=== PATIENT | male | born 1930 | race Caucasian/White ===

== ENCOUNTER 2017-05-23 13:49 | Observation (INO) | payer MEDICARE, BC ==
[2017-05-23] MEDS ORDERED: ONDANSETRON 4 MG/2 ML VIAL IVP PRN (17:45)
[2017-05-23] MEDS ORDERED: ENALAPRILAT 1.25 MG/ML 1 ML VIAL IVP PRN (17:45)
[2017-05-23] MEDS: SODIUM CHLORIDE 0.9% 1,000 ML IV SCH (18:17)
[2017-05-23 18:54] LABS: Basophils % (A) 0 %; Eosinophils # (A) 0.1 k/uL (0-0.7); Eosinophils % (A) 1 %; HCT 40.3 % (39.0-53.0); Lymphocytes % (A) 15 %; MCH 29.9 pg (25.0-35.0); MCHC 32.3 g/dL (31.0-37.0); MCV 92.6 fL (80.0-100.0); Mean Platelet Volume 8.6; Monocytes # (A) 0.4 k/uL (0-1.0); Monocytes % (A) 7 %; Neutrophils # (A) 5.1 k/uL (1.3-7.7); Neutrophils % (A) 76 %; Platelet Count 149 k/uL (150-450); RBC 4.35 m/uL (4.30-5.90); RDW 14.7 % (11.5-15.5); WBC 6.7 k/uL (3.8-10.6)
[2017-05-23 18:55] LABS: INR 1.8 (<1.2); Prothrombin Time 16.2 sec (9.0-12.0)
[2017-05-23 19:10] LABS: Calcium 9.5 mg/dL (8.4-10.2)
[2017-05-24 08:28] LABS: INR 1.8 (<1.2); Prothrombin Time 16.1 sec (9.0-12.0)
--- NOTE | 2017-05-24 08:39 | P.CONS ---
History of Present Illness - Reason for Consult Consult date: 05/24/17 Dysphagia Requesting physician: Chantell Pal - History of Present Illness 87-year-old gentleman patient of Dr. Pal with a past history of CVA 2 with warfarin maintenance, GERD, throat carcinoma status post chemoradiation 2 years ago requiring about 40 radiation treatments and several cycles of chemotherapy. Patient was eating a pork sandwich yesterday afternoon developed acute dysphagia felt in the anterior portion of his throat with coughing and small emesis. Denies hematemesis fever or chills. No history of dysphagia no recent EGD. Denies odynophagia he is able to take small sips of water at bedside this morning without choking coughing or gagging. Admission white count 6.7. Hemoglobin 13. platelet 149. INR 1.8. Review of Systems Constitutional: Denies fever, chills, sweats, weight gain, or loss. HEENT: History of throat carcinoma radiation chemo. Negative for migraines, blurred vision or loss, earaches, drainage, tinnitus, oral mucosal lesions, dysphagia, or odynophagia. Cardiac: Negative for chest pain, arrhythmias, or palpitation. Respiratory: Negative for shortness of breath, hemoptysis, cough, or sputum production. Gastrointestinal: See HPI for pertinent findings. Genitourinary: Negative for hematuria, urgency, frequency, polyuria, dysuria, or penile discharge. Musculoskeletal: Negative for muscle aches, swelling, arthritis, and arthralgias. Neurologic: History of CVA 2.. Endocrine: Negative for thyroid problems. Skin: Negative for rash or itching. Psychiatric: Negative history for depression and anxiety Past Medical History Past Medical History: CVA/TIA, GERD/Reflux, Hypertension Additional Past Medical History / Comment(s): CVA X2, HOARSENESS, throat cancer with chemo and radiation 2014 History of Any Multi-Drug Resistant Organisms: None Reported Past Surgical History: Ear Surgery Additional Past Surgical History / Comment(s): THYROID BX, LEFT EAR STAPES BONE REPLACED WITH STEEL Past Anesthesia/Blood Transfusion Reactions: No Reported Reaction Past Psychological History: No Psychological Hx Reported Smoking Status: Former smoker Past Alcohol Use History: None Reported Past Drug Use History: None Reported Medications and Allergies Home Medications Medication Instructions Recorded Confirmed Type Warfarin Sodium [Coumadin] 7.5 mg PO DAILY 05/23/17 05/23/17 History Allergies Allergy/AdvReac Type Severity Reaction Status Date / Time amoxicillin trihydrate AdvReac Nausea & Verified 05/23/17 16:53 [From Augmentin] Vomiting & Diarrhea potassium clavulanate AdvReac Nausea & Verified 05/23/17 16:53 [From Augmentin] Vomiting & Diarrhea Physical Exam Vitals: Vital Signs Temp Pulse Resp BP BP Pulse Ox 05/24/17 06:03 97.8 F 52 L 16 133/69 98 05/24/17 00:10 152/94 05/23/17 22:45 97.3 F L 54 L 18 172/81 99 05/23/17 16:05 96.8 F L 50 L 18 157/77 99 Intake and Output 05/23/17 05/24/17 05/24/17 22:59 06:59 14:59 Intake Total 0 Balance 0 Intake: Oral 0 Other: # Voids 1 2 Weight 64 kg General appearance: The patient is alert, oriented, in no acute distress. Voice hoarseness. HET: Head is normocephalic and atraumatic. Pupils are equal and reactive. Oropharynx is clear without lesions. Neck: Supple without lymphadenopathy. Trachea midline. Heart: S1 S2. Regular rate and rhythm. Lungs: No crackles or wheezes are heard. Abdomen: Soft, nontender, nondistended with bowel sounds. No peritoneal signs. No palpable organomegaly or masses. Extremities: Normal skin color and turgor. No cyanosis, rash, ulceration, clubbing, or edema. Radial and pedal pulses are 2/4 bilaterally. Neurological: No focal deficits. Strength and sensation are grossly intact. Results CBC & Chem 7: 05/23/17 18:40 05/23/17 18:40 Labs: Abnormal Lab Results - Last 24 Hours (Table) 05/23/17 05/23/17 05/23/17 Range/Units 18:40 18:40 18:40 Plt Count 149 L (150-450) k/uL PT 16.2 H (9.0-12.0) sec INR 1.8 H (<1.2) BUN 23 H (9-20) mg/dL Assessment and Plan (1) Dysphagia Narrative/Plan: Possible foreign body possible stricture disease with history of throat carcinoma requiring chemoradiation 2 years ago. Current Visit: Yes Status: Acute Code(s): R13.10 - DYSPHAGIA, UNSPECIFIED SNOMED Code(s): 94998268 (2) Warfarin-induced coagulopathy Current Visit: Yes Status: Acute Code(s): D68.32 - HEMORRHAGIC DISORD D/T EXTRINSIC CIRCULATING ANTICOAGULANTS; T45.515A - ADVERSE EFFECT OF ANTICOAGULANTS, INITIAL ENCOUNTER SNOMED Code(s): 17444590 Plan: 1. We'll proceed with EGD evaluation this afternoon. Continue with nothing by mouth status. The pediatric np has discussed the risks, benefits and alternative therapies for the above-mentioned procedure and for both sedation/analgesia as well as necessary blood product administration, if indicated, as they pertain to this patient. The patient has indicated understanding and acceptance of the risks and procedures discussed. Thank you for this kind referral and the opportunity to participate in the care of your patient. This consultation was discussed with Dr. Schmidt. The impression and plan of care have been directed as dictated.
[2017-05-24 09:40] VITALS: BMI 24.2
--- NOTE | 2017-05-24 11:28 | P.HPIM ---
History of Present Illness H&P Date: 05/24/17 Navi Clayton is an 87-year-old male well-known to my practice who presented to the office on 05/23/2017 complaining of inability to swallow any food or liquids patient stated that this started suddenly after eating a pork sandwich, he was unable to swallow his food and was unable to swallow sips of water he was coughing up foamy material. Patient has known history of throat carcinoma diagnosed 2 years prior, and was treated with chemo and radiation therapy. He also has known history of stroke in the past with paroxysmal atrial fibrillation maintained on Coumadin, INR on presentation was 1.8. Patient was admitted directly from the office to medical floor gastroenterology consultation was requested for possible EGD, he was kept nothing by mouth and was started on normal saline at 75 mL an hour. Past Medical History Past Medical History: CVA/TIA, GERD/Reflux, Hypertension Additional Past Medical History / Comment(s): CVA X2, HOARSENESS, throat cancer with chemo and radiation 2014 History of Any Multi-Drug Resistant Organisms: None Reported Past Surgical History: Ear Surgery Additional Past Surgical History / Comment(s): THYROID BX, LEFT EAR STAPES BONE REPLACED WITH STEEL Past Anesthesia/Blood Transfusion Reactions: No Reported Reaction Past Psychological History: No Psychological Hx Reported Smoking Status: Former smoker Past Alcohol Use History: None Reported Past Drug Use History: None Reported Medications and Allergies Home Medications Medication Instructions Recorded Confirmed Type Warfarin Sodium [Coumadin] 7.5 mg PO DAILY 05/23/17 05/23/17 History Allergies Allergy/AdvReac Type Severity Reaction Status Date / Time amoxicillin trihydrate AdvReac Nausea & Verified 05/23/17 16:53 [From Augmentin] Vomiting & Diarrhea potassium clavulanate AdvReac Nausea & Verified 05/23/17 16:53 [From Augmentin] Vomiting & Diarrhea Physical Exam Vitals: Vital Signs Temp Pulse Resp BP BP Pulse Ox 05/24/17 06:03 97.8 F 52 L 16 133/69 98 05/24/17 00:10 152/94 05/23/17 22:45 97.3 F L 54 L 18 172/81 99 05/23/17 16:05 96.8 F L 50 L 18 157/77 99 Intake and Output 05/23/17 05/24/17 05/24/17 22:59 06:59 14:59 Intake Total 0 Balance 0 Intake: Oral 0 Other: # Voids 1 2 Weight 64 kg 64 kg Patient Weight 05/25/17 06:59 Weight 64 kg In general patient is alert and oriented 3 in no apparent distress HEENT head normocephalic and atraumatic Neck is supple no JVD no goiter no lymphadenopathy Chest exam reveals a few scattered crackles no wheezing Cardiac exam reveals regular heart sounds no gallops no murmurs Abdomen is soft nontender no organomegaly with normal bowel sounds Extremity exam reveals no edema no cyanosis or clubbing Results CBC & Chem 7: 05/23/17 18:40 05/23/17 18:40 Labs: Abnormal Lab Results - Last 24 Hours (Table) 05/23/17 05/23/17 05/23/17 Range/Units 18:40 18:40 18:40 Plt Count 149 L (150-450) k/uL PT 16.2 H (9.0-12.0) sec INR 1.8 H (<1.2) BUN 23 H (9-20) mg/dL 05/24/17 Range/Units 08:06 Plt Count (150-450) k/uL PT 16.1 H (9.0-12.0) sec INR 1.8 H (<1.2) BUN (9-20) mg/dL Thrombosis Risk Factor Assmnt - Choose All That Apply Other Risk Factors: No Assessment and Plan Plan: #1 sudden onset of dysphagia #2 underlying history of throat cancer diagnosed 2 years ago and treated with chemotherapy and radiation therapy #3 previous history of stroke #4 paroxysmal atrial fibrillation maintained on Coumadin INR on presentation 1.8 At this time patient is stable he is kept nothing by mouth gastroenterology consultation was requested for possible EGD Will follow during this hospitalization for medical management
[2017-05-24] MEDS ORDERED: PROPOFOL 10 MG/ML 20 ML VIAL IV ONE (13:41)
[2017-05-24] MEDS ORDERED: IV FLUID CONTINUATION 1,000 ML IV ONE (13:50)
[2017-05-24] MEDS: SODIUM CHLORIDE 0.9% 1,000 ML IV SCH (17:35)
[2017-05-24] MEDS ORDERED: WARFARIN 7.5 MG TAB PO ONE (18:00)
--- NOTE | 2017-05-24 22:59 | P.PCN ---
Date of Procedure: 05/24/17 Procedure(s) Performed: Procedure: Esophagogastroduodenoscopy and esophageal dilation using the Microvasive [id number]-qvyie balloon size 10-12 mm. Preoperative diagnosis: Obstructive dysphagia. Postoperative diagnosis: 1. Distal esophageal ulcers and stricture requiring dilation before the endoscope could be advanced into the stomach. 2. No impacted food bolus was noted and the impacted food material must have spontaneously advanced into the stomach prior to this examination. Preparation and sedation: Was provided by anesthesia. Brief clinical history: The patient is an an 87-year-old male who presented to PCP office on 05/23/2017 complaining of inability to swallow any food or liquids and he stated that this started suddenly after eating a pork sandwich. He was unable to swallow sips of water and he was coughing up foamy material. He has history of throat carcinoma diagnosed 2 years prior, and was treated with chemo and radiation therapy. He also has history of stroke in the past with paroxysmal atrial fibrillation maintained on Coumadin, INR on presentation was 1.8. Patient was admitted directly from the office to medical floor and a gastroenterology consultation was requested for possible EGD. The details are summarized in the history and physical and dictated consultation and progress notes. This evaluation is for possible foreign body removal. Procedure: With the patient on his left lateral decubitus position and after informed consent and adequate sedation, I passed the Olympus-GIF 160 video upper endoscope through the cricopharyngeus down the esophagus. There was hesitation to the advancing of the endoscope through the cricopharyngeal area but there was no stricture at that level. The esophagus showed no impacted food bolus or significant amount of secretions. The distal esophagus was strictured and would not allow the advancement of the endoscope. I could see through the stricture two ulcerations covered with exudate in the distal esophagus. At this point, I proceeded to pass the Microvasive through-the- scope balloon dilator size 10-12 mm centered it at the level of the stricture and inflated it in a stepwise fashion up to 12 mm following which I was able to pass the endoscope into the stomach. The 2 ulcers in the distal esophagus where almost circumferential but appeared benign. There was a 1-2 cm hiatal hernia then the endoscope was advanced to the stomach which was insufflated with air and inspected in detail including the retroflex view in the cardia. Finally, the endoscope was passed through the pylorus into the duodenum. There was no masses seen in the retroflex view in the cardia or any obvious abnormalities in the stomach. Pyloric channel, duodenal bulb, post bulbar area and descending duodenum appeared within normal limits. The patient tolerated the procedure well. Plan: The patient and his family were reassured. It is likely that the ulcerations in the distal esophagus and the stricture are acid reflux related. I suggested clear liquid diet today and starting intensive medical therapy for reflux. His diet can be advanced tomorrow as tolerated. Repeat upper endoscopy in 2-3 months for assessment of the healing of the esophageal ulcers and possible further dilation will be considered. I will discuss with you and follow with you with interest.
[2017-05-25 07:20] LABS: Basophils % (A) 0 %; Eosinophils # (A) 0.1 k/uL (0-0.7); Eosinophils % (A) 2 %; HCT 39.6 % (39.0-53.0); HGB 12.5 gm/dL (13.0-17.5); Lymphocytes # (A) 0.9 k/uL (1.0-4.8); Lymphocytes % (A) 15 %; MCH 29.3 pg (25.0-35.0); MCHC 31.5 g/dL (31.0-37.0); MCV 92.9 fL (80.0-100.0); Mean Platelet Volume 8.7; Monocytes # (A) 0.5 k/uL (0-1.0); Monocytes % (A) 8 %; Neutrophils # (A) 4.6 k/uL (1.3-7.7); Neutrophils % (A) 74 %; Platelet Count 150 k/uL (150-450); RBC 4.26 m/uL (4.30-5.90); RDW 14.5 % (11.5-15.5); WBC 6.2 k/uL (3.8-10.6)
[2017-05-25 07:23] LABS: Prothrombin Time 17.9 sec (9.0-12.0)
[2017-05-25 07:37] LABS: Albumin 3.4 g/dL (3.5-5.0); Calcium 9.2 mg/dL (8.4-10.2); Potassium 4.6 mmol/L (3.5-5.1); Total Protein 5.9 g/dL (6.3-8.2)
[2017-05-25 07:51] VITALS: RESP 20
[2017-05-25] MEDS ORDERED: PANTOPRAZOLE 40 MG/10 ML VIAL IVP SCH (09:00)
--- NOTE | 2017-05-25 11:10 | P.PN ---
Subjective Progress Note Date: 05/25/17 Principal diagnosis: Dysphagia Status post EGD evaluation yesterday for dysphagia with findings of distal esophageal ulcers and stricture requiring balloon dilation. Feels well this point. Tolerating liquid diet. Hemoglobin 12.5. INR 2.0. Objective - Vital Signs Vital signs: Vital Signs Temp 98.5 F 05/25/17 07:00 Pulse 63 05/25/17 07:00 Resp 20 05/25/17 07:00 BP 191/81 05/25/17 07:00 Pulse Ox 98 05/25/17 07:00 Intake & Output 05/24/17 05/25/17 05/25/17 18:59 06:59 18:59 Intake Total 530 237 Balance 530 237 Weight 64 kg Intake: IV 50 Oral 480 237 Other: # Voids 1 3 - Exam General appearance: The patient is alert, oriented, in no acute distress. HET: Head is normocephalic and atraumatic. Pupils are equal and reactive. Oropharynx is clear without lesions. Neck: Supple without lymphadenopathy. Trachea midline. Heart: S1 S2. Regular rate and rhythm. Lungs: No crackles or wheezes are heard. Abdomen: Soft, nontender, nondistended with bowel sounds. No peritoneal signs. No palpable organomegaly or masses. Extremities: Normal skin color and turgor. No cyanosis, rash, ulceration, clubbing, or edema. Radial and pedal pulses are 2/4 bilaterally. Neurological: No focal deficits. Strength and sensation are grossly intact. - Labs CBC & Chem 7: 05/25/17 06:47 05/25/17 06:47 Labs: Abnormal Lab Results - Last 24 Hours (Table) 05/25/17 05/25/17 05/25/17 Range/Units 06:47 06:47 06:47 RBC 4.26 L (4.30-5.90) m/uL Hgb 12.5 L (13.0-17.5) gm/dL Lymphocytes # 0.9 L (1.0-4.8) k/uL PT 17.9 H (9.0-12.0) sec INR 2.0 H (<1.2) Chloride 108 H (98-107) mmol/L BUN 21 H (9-20) mg/dL Total Protein 5.9 L (6.3-8.2) g/dL Albumin 3.4 L (3.5-5.0) g/dL Assessment and Plan (1) Dysphagia Narrative/Plan: Distal esophageal stricture status post dilation with distal esophageal ulcers no evidence of foreign body. Current Visit: Yes Status: Acute Code(s): R13.10 - DYSPHAGIA, UNSPECIFIED SNOMED Code(s): 87298224 (2) Warfarin-induced coagulopathy Current Visit: Yes Status: Acute Code(s): D68.32 - HEMORRHAGIC DISORD D/T EXTRINSIC CIRCULATING ANTICOAGULANTS; T45.515A - ADVERSE EFFECT OF ANTICOAGULANTS, INITIAL ENCOUNTER SNOMED Code(s): 26946763 Plan: 1. Advance diet. Continue with warfarin. Follow-up in office after discharge. Prilosec 20 mg daily. 2. Discharge per medicine. Assessment and plan a care discussed with Dr. Schmidt
[2017-05-25] MEDS ORDERED: LISINOPRIL 10 MG TAB PO STA (12:38)
--- NOTE | 2017-05-25 12:40 | P.DS ---
Providers Date of admission: 05/23/17 15:15 Expected date of discharge: 05/25/17 Attending physician: Chantell Pal Primary care physician: Chantell Pal [facility] Course: Discharge diagnosis #1 sudden onset of dysphagia: Status post EGD revealing distal esophageal ulcer and stricture likely secondary to his GERD status post dilation. Patient is tolerating diet. #2 underlying history of throat cancer diagnosed 2 years ago and treated with chemotherapy and radiation therapy #3 previous history of stroke #4 paroxysmal atrial fibrillation maintained on Coumadin INR on presentation 1.8. INR at discharge 2.0 5. Essential hypertension: Start lisinopril 10 mg daily Hospital course Navi Clayton is an 87-year-old male well-known to my practice who presented to the office on 05/23/2017 complaining of inability to swallow any food or liquids patient stated that this started suddenly after eating a pork sandwich, he was unable to swallow his food and was unable to swallow sips of water he was coughing up foamy material. Patient has known history of throat carcinoma diagnosed 2 years prior, and was treated with chemo and radiation therapy. He also has known history of stroke in the past with paroxysmal atrial fibrillation maintained on Coumadin, INR on presentation was 1.8. Patient was admitted directly from the office to medical floor gastroenterology consultation was requested for possible EGD, he was kept nothing by mouth and was started on normal saline at 75 mL an hour. Patient underwent EGD revealing a distal esophageal ulcer and stricture that required dilation. He was seen evaluated by GI service and they've placed him on omeprazole. He is tolerating advancement of diet. No further symptoms of dysphagia. Patient did have elevated blood pressures during this admission and he will cry her lisinopril at the time of discharge. We'll follow-up in the office in one week with Dr. Pal. He is scheduled for a repeat EGD in 2-[address] Giron. I performed an examination of the patient and discussed their management with the physician Lead Game Designer. I have reviewed the Physician Lead Game Designer's notes and agree with the documented findings and plan of care Patient Condition at Discharge: Stable Plan - Discharge Summary Discharge Rx Participant: Yes New Discharge Prescriptions: New Omeprazole [PriLOSEC] 20 mg PO AC-BRKT #30 cap Lisinopril [Prinivil] 10 mg PO DAILY #30 tab Continue Warfarin Sodium [Coumadin] 7.5 mg PO DAILY Discharge Medication List Warfarin Sodium [Coumadin] 7.5 mg PO DAILY 05/23/17 [History] Lisinopril [Prinivil] 10 mg PO DAILY #30 tab 05/25/17 [Rx] Omeprazole [PriLOSEC] 20 mg PO AC-BRKFST #30 cap 05/25/17 [Rx] Follow up Appointment(s)/Referral(s): Garrett Schmidt MD [STAFF PHYSICIAN] - 07/10/17 2:30 pm (follow up in three months) Activity/Diet/Wound Care/Special Instructions: Diet: cardiac, low fiber diet Activity: as tolerated Discharge Disposition: HOME SELF-CARE
[2017-05-25 14:15] VITALS: BP 183/91; PULSE 72; TEMP 98.1
== END 2017-05-25 14:25 | disposition home or self-care (01) ==
LOC: 4MS4W 15:15 → 3SUR 05-25 02:19
PROVIDERS: ADMIT Internal Medicine; ATTEND Internal Medicine
DX: R13.10 Dysphagia, unspecified (principal); K22.10 Ulcer of esophagus without bleeding; K22.2 Esophageal obstruction; K21.9 Gastro-esophageal reflux disease without esophagitis; Z92.21 Personal history of antineoplastic chemotherapy; Z85.819 Personal history of malignant neoplasm of unspecified site of lip, oral cavity, and pharynx; Z92.3 Personal history of irradiation; Z86.73 Personal history of transient ischemic attack (TIA), and cerebral infarction without residual deficits; I48.0 Paroxysmal atrial fibrillation; Z79.01 Long term (current) use of anticoagulants; I10 Essential (primary) hypertension; R79.1 Abnormal coagulation profile; T45.515A Adverse effect of anticoagulants, initial encounter; Z88.0 Allergy status to penicillin; Z87.891 Personal history of nicotine dependence
CPT/HCPCS: 43249; 80048; 80053; 85025; 85610; 96361; 96374

== ENCOUNTER 2017-08-19 17:01 | Emergency (ER) | payer MEDICARE, BC ==
[2017-08-19 17:14] VITALS: RESP 18
[2017-08-19] MEDS ORDERED: traMADol 50 MG TAB PO STA (17:23)
--- NOTE | 2017-08-19 17:29 | ED ---
Back Pain HPI - General Chief Complaint: Back Pain/Injury Stated Complaint: low back pain Time Seen by Provider: 08/19/17 17:12 Source: patient Limitations: no limitations - History of Present Illness Initial Comments: 87-year-old male patient presents to the emergency department today for evaluation of midline low back pain started a couple weeks ago. Patient states that the pain had been intermittent and a dull ache. Patient states that today he bent down and the pain became much worse. Currently describing the pain as sharp, like someone is "stabbing me with a knife". He denies any history of back pain or back problems. He denies any abdominal pain. Denies any radiation of the pain down his legs. Denies any numbness or tingling to his lower extremities. Denies loss of bowel or bladder control. Denies any saddle anesthesia. He states that he was recently diagnosed with a small mass in his left lung. He will be starting radiation for this soon. Patient denies any recent rash, fever, chills, shortness breath, chest pain, abdominal pain, nausea , vomiting, diarrhea, constipation, dizziness, weakness, hematuria, dysuria, urinary urgency, urinary frequency, headache, visual changes, or any other complaints. - Related Data Home Medications Medication Instructions Recorded Confirmed Warfarin Sodium [Coumadin] 7.5 mg PO DAILY 05/23/17 05/23/17 Previous Rx's Medication Instructions Recorded Lisinopril [Prinivil] 10 mg PO DAILY #30 tab 05/25/17 Omeprazole [PriLOSEC] 20 mg PO AC-BRKFST #30 cap 05/25/17 traMADol HCl [Ultram] 50 mg PO Q6H PRN #12 tab 08/19/17 Allergies Allergy/AdvReac Type Severity Reaction Status Date / Time amoxicillin trihydrate AdvReac Nausea & Verified 08/19/17 17:11 [From Augmentin] Vomiting & Diarrhea potassium clavulanate AdvReac Nausea & Verified 08/19/17 17:11 [From Augmentin] Vomiting & Diarrhea Review of Systems ROS Statement: Those systems with pertinent positive or pertinent negative responses have been documented in the HPI. ROS Other: All systems not noted in ROS Statement are negative. Past Medical History Past Medical History: CVA/TIA, GERD/Reflux, Hypertension Additional Past Medical History / Comment(s): CVA X2, HOARSENESS, throat cancer with chemo and radiation 2014 History of Any Multi-Drug Resistant Organisms: None Reported Past Surgical History: Ear Surgery Additional Past Surgical History / Comment(s): THYROID BX, LEFT EAR STAPES BONE REPLACED WITH STEEL Past Anesthesia/Blood Transfusion Reactions: No Reported Reaction Past Psychological History: No Psychological Hx Reported Smoking Status: Former smoker Past Alcohol Use History: None Reported Past Drug Use History: None Reported General Exam Limitations: no limitations General appearance: alert, in no apparent distress, other (This is a well- developed, well-nourished elderly male patient in no acute distress. Vital signs upon presentation are temperature 97.6F, pulse 47, respirations 18, blood pressure 193/89, pulse ox 100% on room air.) Eye exam: Present: normal appearance, PERRL, EOMI. Absent: scleral icterus, conjunctival injection, periorbital swelling ENT exam: Present: normal exam, normal oropharynx, mucous membranes moist Respiratory exam: Present: normal lung sounds bilaterally. Absent: respiratory distress, wheezes, rales, rhonchi, stridor Cardiovascular Exam: Present: normal rhythm, bradycardia, normal heart sounds. Absent: systolic murmur, diastolic murmur, rubs, gallop, clicks GI/Abdominal exam: Present: soft, normal bowel sounds. Absent: distended, tenderness, guarding, rebound, rigid Extremities exam: Present: normal inspection, full ROM, normal capillary refill , other (Lower extremities are pink, warm, and dry. Cap refills less than 3 seconds. Post tibial pulses are 2+ and equal bilaterally.). Absent: tenderness , pedal edema, joint swelling, calf tenderness Back exam: Present: normal inspection. Absent: muscle spasm, paraspinal tenderness, vertebral tenderness Neurological exam: Present: alert, oriented X3, CN II-XII intact, other ( Strength in all 4 extremities is 5/5.) Psychiatric exam: Present: normal affect, normal mood Skin exam: Present: warm, dry, intact, normal color. 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 Physical examination is unremarkable. Inspection of the site is unremarkable. Patient is neurologically intact with good strength in all 4 extremities. He has had no loss of bowel or bladder control. Did not report any numbness or tingling. Did perform a CT of the lumbar spine. This did show significant degenerative changes with significant stenosis at L3 to 4 and L2 to 3. Patient was given a tramadol here in the department. He did report mild improvement of his symptoms. He'll be given a prescription for this to take at home. He was educated regarding risk of opiate addiction. Patient will be discharged to follow-up with his primary care physician for further evaluation. Return parameters discussed in detail. He verbalizes understanding and agrees this plan. - Radiology Data Radiology results: report reviewed, image reviewed CT of the lumbar spine without contrast was obtained. Report was reviewed in its entirety. Impression by Dr. Amadou Justice shows no acute process. Prominent L3 to 4 spinal stenosis, with significant similar findings L2-L3. Disposition Clinical Impression: Acute low back pain Disposition: HOME SELF-CARE Condition: Good Instructions: Acute Low Back Pain (ED) Additional Instructions: Take medications as directed. Apply warm moist heat to the low back for assistance with pain control. Follow-up with her primary care physician for recheck to discuss possible bracing and/or physical therapy. Return here immediately for any new, worsening, or concerning symptoms. Prescriptions: traMADol HCl [Ultram] 50 mg PO Q6H PRN #12 tab PRN Reason: Pain Is patient prescribed a controlled substance at d/c from ED?: Yes When asked, does pt state using other controlled substances?: No If prescribed controlled substance>3 days was MAPS reviewed?: Prescribed <3 Days If opioid is for acute pain is fill amount 7 days or less?: Yes If Rx opioid, was Start Talking consent form obtained?: Yes Referrals: Chantell Pal MD [Primary Care Provider] - 1-2 days Time of Disposition: 18:46
--- NOTE | 2017-08-19 18:30 | CT ---
EXAMINATION TYPE: CT lumbar spine wo con DATE OF EXAM: 08/19/2017 5:43 PM COMPARISON: NONE HISTORY: Low back pain after bending down today. CT DLP: 419.2 mGycm. Automated exposure control for dose reduction was used. FINDINGS: SKELETAL STRUCTURES: There is no fracture or malalignment. There is levocurvature, but this may be po sitional. There are markedly advanced facet osteoarthritis changes from L2-3 through the lumbosacral junction bilaterally. There are moderate multilevel degenerative disc changes, with prominent anterio r osteophytic bridging osteophytes noted from T12 through L4. There are no pars interarticularis defe cts. Sacroiliac joints are unremarkable. There is evidence of generalized osteopenia, but no compress ions. No focal osseous lesions. SOFT TISSUES: At L3-4 there is prominent lateral recess stenosis and neural foraminal stenosis bilate rally, due to circumferential disc bulge and osteophytic spurring at the facet joints and ligamentum flavum hypertrophy. These changes are [id number] in degree at the L2-3 level, mild in degree at the L4-5 level, and minimal degree at the lumbosacral junction. IMPRESSION: 1. NO ACUTE PROCESS. 2. PROMINENT L3-4 SPINAL STENOSIS, WITH SIGNIFICANT SIMILAR FINDINGS AT L2-3.
[2017-08-19 18:48] VITALS: BP 185/77; PULSE 54; TEMP 97.1
== END 2017-08-19 19:02 | disposition home or self-care (01) ==
LOC: EC 17:01
DX: M54.5 Low back pain (principal); M48.061 Spinal stenosis, lumbar region without neurogenic claudication; M47.816 Spondylosis without myelopathy or radiculopathy, lumbar region; R00.1 Bradycardia, unspecified; R91.8 Other nonspecific abnormal finding of lung field; Z87.891 Personal history of nicotine dependence; Z79.01 Long term (current) use of anticoagulants; Z88.0 Allergy status to penicillin; Z86.73 Personal history of transient ischemic attack (TIA), and cerebral infarction without residual deficits; Z85.818 Personal history of malignant neoplasm of other sites of lip, oral cavity, and pharynx; Z92.21 Personal history of antineoplastic chemotherapy; Z92.3 Personal history of irradiation
CPT/HCPCS: 72131; 99283

== ENCOUNTER 2017-10-24 11:02 | Day surgery (SDC) | payer MEDICARE, BC ==
[2017-10-20 10:25] VITALS: BMI 22.4
[~2017-10-24 11:02] MED LIST: LACTATED RINGERS 1,000 ML IV SCH
[2017-10-24 11:52] VITALS: TEMP 97.8
[2017-10-24] MEDS ORDERED: LIDOCAINE 1% 20 ML VIAL (10MG/ML) FOR IV START INTRADERMA ONE (11:56)
[2017-10-24] MEDS ORDERED: PROPOFOL 10 MG/ML 20 ML VIAL IV ONE (12:21)
--- NOTE | 2017-10-24 12:58 | P.PCN ---
Date of Procedure: 10/24/17 Procedure(s) Performed: Procedure: Esophagogastroduodenoscopy. Preoperative diagnosis: History of esophageal ulcers and stricture. Postoperative diagnosis: Hiatal hernia with no evidence of esophagitis or obstructing stricture. Preparation sedation: Was provided by anesthesia. Brief clinical history: The patient is an 87-year-old male who was hospitalized around 4 months ago because of inability to swallow. An upper endoscopy showed distal esophageal ulcers and stricture requiring dilation before the endoscope could be advanced into the stomach. The patient has history of throat cancer diagnosed around 2 years ago that was treated with chemo and radiation therapy. He also has history of stroke in the past. At the time of his upper endoscopy and dilation in May, I suggested that we repeat the endoscopic evaluation in few months to ascertain the healing of the ulcers and to consider further dilation of his stricture if necessary. The patient was seen in the office last month and he reported doing well while on omeprazole. Procedure: With the patient on his left lateral decubitus position and after informed consent and adequate sedation, I passed the Olympus-GIF 160 video upper endoscope was initially used, however I was not able to pass it through the cricopharyngeus down the esophagus. I exchanged it for the pediatric upper endoscope which passed after limited hesitation at the level of the cricopharyngeus as previously described but there was no stricture at that level. It appeared that the esophagus was somewhat stenotic at the cricopharyngeus level likely related to his previous radiation therapy. The distal esophagus showed complete healing of the previously described circumferential ulcerations. And there was no evidence of stricture or hesitation to advance the endoscope in the distal esophagus. There was 1-2 cm hiatal hernia then the endoscope was advanced to the stomach which was insufflated with air and inspected in detail including the retroflex view in the cardia. Finally, the endoscope was passed through the pylorus into the duodenum. There was no masses seen in the retroflex view in the cardia or any obvious abnormalities in the stomach. Pyloric channel, duodenal bulb, post bulbar area and descending duodenum appeared within normal limits. The patient tolerated the procedure well. Plan: The patient was reassured. I suggested that he could be changed to H2 blockers on as needed basis and we would make further plans based on his course. He will follow up with you as planned and we would consider dilation in the future as needed.
[2017-10-24 13:00] VITALS: BP 125/54; PULSE 55; RESP 18
== END 2017-10-24 13:17 | disposition home or self-care (01) ==
LOC: ORWHC2ENDO 11:02
DX: K44.9 Diaphragmatic hernia without obstruction or gangrene (principal); K21.9 Gastro-esophageal reflux disease without esophagitis; I10 Essential (primary) hypertension; Z88.0 Allergy status to penicillin; Z92.21 Personal history of antineoplastic chemotherapy; Z92.3 Personal history of irradiation; Z86.73 Personal history of transient ischemic attack (TIA), and cerebral infarction without residual deficits; Z85.89 Personal history of malignant neoplasm of other organs and systems; Z79.01 Long term (current) use of anticoagulants; Z79.899 Other long term (current) drug therapy
CPT/HCPCS: 43235; J2704